=== PATIENT | male | born 1960 | race Caucasian/White ===

== ENCOUNTER 2025-04-19 13:26 | Outpatient (CLI) | payer BC ==
--- NOTE | 2025-04-19 14:40 | RADIOLOGY REPORT ---
EXAM: CT CT LOWER EXTREMITY HISTORY: OSTEOARTHRITIS, RIGHT KNEE, PAIN- TRUMATCH PROTOCOL COMPARISON: None TECHNIQUE: Noncontrast axial CT images of the right knee were performed. Sagittal and coronal reformatted images were obtained. Limited axial imaging of the right hip and ankle were also performed. This CT exam was performed using one or more of the following dose reduction techniques: Automated exposure control, adjustment of the mA and/or kv according to patient size, or the use of iterative reconstruction techniques. Radiation Dose Information: CTDI volume is 8.32 mGy. Dose-length product is 290.02 mGy*cm FINDINGS: No acute fracture is identified about right knee. There are tricompartmental marginal osteophytes. There is moderate joint space narrowing of the medial compartment. There is mild joint space narrowing of the patellofemoral compartment. There is a small quadriceps tendon insertion enthesophyte on the superior pole of the patella. There is a moderate to large joint effusion. There is mild osteoarthritis of the right hip. Accessory navicular bone and Achilles insertion enthesophyte are incidentally noted. IMPRESSION: 1. No acute fracture of the right knee. 2. Tricompartmental degenerative changes of the right knee, greatest in the medial compartment. 3. Moderate to large right knee effusion.
== END 2025-04-19 23:59 | disposition home or self-care (01) ==
LOC: RAD 13:26
PROVIDERS: ATTEND Orthopaedic Surgery
DX: M17.11 Unilateral primary osteoarthritis, right knee (principal); M25.461 Effusion, right knee
CPT/HCPCS: 73700

== ENCOUNTER 2025-05-11 07:06 | Inpatient (IN) | payer BC ==
--- NOTE | 2025-05-04 14:08 | ELECTROCARDIOGRAPH REPORT ---
[facility] Test Date: 2025-05-04 Test Time: 14:05:43 Pat Name: DIANNE JUSTIN Department: [facility]-PRE-OP Patient ID: [facility]-[id number] Room: Gender: M Purchasing/Receiving: : 1960 Requested By: ADAMA HERNANDEZ Order Number: [id number] Reading MD: Dr. CELINE Benjamin Measurements Intervals [place] Rate: 66 P: 46 NJ: 155 QRS: 83 QRSD: 103 T: -47 QT: 399 QTc: 418 Interpretive Statements Sinus rhythm Consider left atrial enlargement Borderline right axis deviation Abnormal T, consider ischemia, inferior leads Electronically Signed On 05-04-2025 17:07:[address] CELINE Benjamin Please click the below link to view image of tracing.
[2025-05-04 14:20] LABS: MEAN PLATELET VOLUME 7.6 FL (7.4-10.4); PRE OP HEMATOCRIT 44.0 % (42.0-52.0); PRE OP HEMOGLOBIN 15.0 g/dL (14.0-17.9); PRE OP PLATELET COUNT 172 X10'3 (140-440); PRE OP WHITE BLOOD COUNT 5.8 10'3 (4.8-10.8); RED CELL DISTRIBUTION WIDTH 13.9 % (11.5-14.5)
[2025-05-04 14:36] LABS: CREATININE 1.06 MG/DL (0.60-1.10); PRE OP ALT 33 U/L (30-65); PRE OP ANION GAP 7 (8-16); PRE OP AST 23 U/L (10-37); PRE OP BILIRUB, TOTAL 0.4 MG/DL (0.0-1.0); PRE OP GLUCOSE 98 MG/DL (70-104); PRE OP POTASSIUM 4.1 MMOL/L (3.4-5.1); PRE OP SODIUM 141 MMOL/L (135-145); TOTAL CARBON DIOXIDE 28.2 MMOL/L (24-32); eGFR 71 ML/MIN
[~2025-05-11] VITALS: Ht 180.3 cm; Wt 115.6 kg
[2025-05-11] VITALS (18 sets, daily range): BP systolic 113–150; BP diastolic 78–98; PULSE 63–88; RESP 11–19; TEMP 96.9–98.6; O2SAT 87–100
[2025-05-11] MEDS: tranexamic acid 1gm/0.7% sal. 100 ML IV ONE (05:30)
[2025-05-11] MEDS: ceFAZolin 2gm/dext,iso 50mL 50 ML IV ONE (05:30)
[~2025-05-11 07:06] MED LIST: ROSU20TA98 PO; vancomycin 1,000mg inj ONE
[2025-05-11] MEDS ORDERED: vancomycin 1,000mg inj ONE (07:12)
[2025-05-11] MEDS ORDERED: BUPIVAcaine 2.5mg/ml inj 50ml vial (contains preservative) ONE (07:17)
[2025-05-11] MEDS: ringers solution, lacted 1,000 ML IV SCH ×2 (08:50→15:17)
[2025-05-11] MEDS: VANCOMYCIN/H2O 1.5g/300mL PB 300 ML IV ONE (08:51)
[2025-05-11] MEDS ORDERED: MIDAZolam 1 MG/ML 5ML VIAL ONE ×2 (10:59→11:29)
[2025-05-11] MEDS ORDERED: fentaNYL/PF 50MCG/1 ML 2ML syringe ONE (10:59)
[2025-05-11] MEDS ORDERED: propofol inj 20 ML IV ONE ×2 (11:15→13:38)
[2025-05-11] MEDS ORDERED: fentaNYL/PF 50MCG/1 ML 2ML syringe IV PRN ×2 (12:30)
[2025-05-11] MEDS ORDERED: morphine 4 MG/ML inj SYRINge IV PRN (12:30)
[2025-05-11] MEDS ORDERED: enalaprilat 1.25mg/ml 2ml vial IV PRN (12:30)
[2025-05-11] MEDS ORDERED: ondansetron/PF 4mg/2ml inj IV PRN ×2 (12:30→14:50)
[2025-05-11] MEDS ORDERED: HYDROmorphone/PF 0.2 MG/ML SYRINGE IV PRN ×2 (12:30)
[2025-05-11] MEDS ORDERED: labetalol 20mg/4ml (5mg/ml) syringe IV PRN (12:30)
--- NOTE | 2025-05-11 12:30 | ANESTHESIA RECORDS ---
Nerve Block Providers to CC ~ Diagnosis: Nerve Block requested by: ADAMA HERNANDEZ MD Neuraxial/Peripheral Nerve Block requested for Post-operative analgesia by Physician above DIAGNOSIS: Post-operative pain. (Body Area) Shoulder: [ ] Arm: [ ] Hand: [ ] Hip: [ ] Knee: [ Right ] Ankle: [ ] Foot: [ ] Leg: [ ] Abdomen: [ ] Other: [ ] Post-operative pain expected to be/is inadequately managed by oral or IV medicines. Regional anesthetic expected to facilitate rehabilitation and/or discharge from facility. Other:[ ] Procedure Performed: Femoral / Saphenous: Right Time out Done?: Yes Time of Time out: 13:58 Procedure Details: PROCEDURE DETAILS: Risks, benefits and alternatives explained Informed consent obtained, and patient wishes to proceed Conscious sedation with indicated monitors Patient positioned, pertinent anatomy defined, sterile technique used Needle used: [ ] 3 1/8 inch Stimuplex Ultra 22ga [x ] 4 inch Stimuplex Ultra 20ga [ ] 6 inch Stimuplex Ultra 20ga [ ] 6 inch, Quikbloc over the needle catheter set 20ga [ ] 4 inch Quikbloc over the needle catheter set 20ga [ ]Other: [ ] Loss of twitch @ [ N/A ]mA [ x] Single Injection [ ] Catheter Ultrasound Guidance Used: [x ] Yes [ ] No Attempts:[ once ] Medicines injected: [x ]Clonidine Amt:[ 1oo mcgs ] [x ]Dexamethasone Amt:[ 4 mgs ] [x ]Ropivacaine Amt:[____0.5 % 25 cc ] [ ]Bupivacaine Amt:[___0.375% 20 cc ] [ ]Lidocaine Amt:[ ] [ ]Exparel 1.33%:[ ] [ ]Epinephrine Amt[ ] [ ]Other: [ ] Intermittent aspiration during local anesthetic administration No symptoms of intraneural or intravenous injection Patient tolerated procedure well Comments Rt Adductor Canal blk Procedure done after surgery under Spinal anesthesia. Pt supine with Rt leg rotated to Rt slightly. Easy visualization of Adductor Canal with ultra sound anterolateral to Femoral artery at the junction of upper and middle third of thigh. Able to see the tip of the needle and injected local anesthetic with the ultrasound. 5 cc of local anesthetic is injected into nerve to Vastus medialis and few cc is injected into ant femoral cutaneous nerves. No Pain or discomfort during injection. Rt IPACK Block: (Infiltration Between Popliteal Artery and Capsule of the Knee). Knee is flexed with the patient in supine position. Using a curvilinear probe placed under the knee, Popliteal vessels are identified. Block needle is inserted from Medial part of the knee about the Patellar level in between popliteal vessels and femoral condyles (capsule of knee) and 20 ml of local anes thetic solution is infiltrated in the space. STACIE AL MD May 11, 2025 12:30
[2025-05-11] MEDS ORDERED: ROPIVAcaine 0.5% (5mg/ml) 30ml vial ONE (13:38)
[2025-05-11] MEDS ORDERED: BUPIVAcaine/PF 7.5mg/ml (0.75%) 10ml vial ONE (13:39)
[2025-05-11] MEDS ORDERED: LIDOcaine 1%/PF 5ML 10 MG/ML VIAL ONE (13:40)
[2025-05-11] MEDS ORDERED: bisacodyl 10mg suppository rectal RC PRN (14:50)
[2025-05-11] MEDS ORDERED: PCA WASTE DOCUMENTATION 1 MG ML MC SCH (14:50)
[2025-05-11] MEDS ORDERED: oxyCODONE IR 5mg (immed. release) tablet PO PRN (14:50)
[2025-05-11] MEDS ORDERED: tranexamic acid inj. 1,150 MG in normal saline 100ml IV soln 100 ML IV ONE (14:50)
[2025-05-11] MEDS ORDERED: magnesium hydroxide 30ml (MOM) UD suspension PO PRN (14:50)
[2025-05-11] MEDS ORDERED: HYDROmorphone inj. 0.5 MG/0.5 ML DISP.SYRIN IV PRN (14:50)
--- NOTE | 2025-05-11 15:03 | OPERATIVE REPORT ---
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 Femoral component size right nine. Patellar component 41 mm. Tibial component size 10. 6 mm medial stabilized right polyethylene liner. Of the Estimated Blood Loss: 150 mL Specimen Removed: Degenerative bone bone meniscal and cruciate tissue Description of Procedure: Patient was taken to the operating room after I had obtained informed consent and signed his right knee he is given prophylactic intravenous antibiotics per protocol. Once in the operating room he was placed in a supine position after getting a spinal anesthetic by anesthesiologist. Once in the supine position his left leg was placed in an SCD devices right leg was placed in a well-padded upper thigh tourniquet and prepped and draped in usual sterile orthopaedic fashion. A surgical time-out was taken per protocol and the case was begun. Esmarch was used for exsanguination tourniquet was insufflated to 275 mm of mercury. Ioban skin dressing was used to protect the entirety of the knee. IMP leg deluna was used. An anterior incision was made measuring approximately 10 in and a medial parapatellar approach was accomplished using Saf dissection without difficulty hemostasis was achieved during the approach minimizing blood loss. Patella was evaluated and found to have extensive degenerative changes the surrounding osteophytes and marked synovitis. Osteotomy of the patella was accomplished with a freehand technique removing minimal amount of tissue equal to the size of the replacement prosthetic implant. The cut surfaces was drilled per protocol and placed in a protective patellar skin plate subluxed laterally while the knee was flexed to expose the distal femur. Meticulous care was used to make sure that we had excellent exposure in the distal femoral cutting block fit perfectly was pinned into place in the distal femoral cut was made without difficulty. Proximal tibial osteotomy was accomplished after releasing the cruciate ligaments and resected in the meniscal tissue. Patient had cutting block fit perfectly Na osteotomy of the proximal tibia was accomplished without difficulty and removed on block. Making sure that all meniscal tissue and cruciate tissue was excised of the posterior aspect of the tibia the extension gap was measured to be 6 mm placed in the knee at 90 of flexion of the tension diameter and flexion with 6 mm using the tension diameter to establish external rotation the femoral four in one cutting block was applied anterior and posterior chamfer cuts were made without difficulty the 3rd chamfer cut was made with a separate cutting alignment through and the trial of the femur and tibia fit nicely size 9th of the femur size 10 with the tibia achieving full range of motion and stable with a 6 mm polyethylene liner. Copious antibiotic antiseptic irrigation was used prior to placement of the implants. Tibial implant was impacted into place with excellent bone quality femoral component was impacted finally and then a definitive 6 mm liner was placed after trialing five in the six to mixture of the six was stable. With the [address] full extension and full flexion throughout a range of motion with a central fat and patella trial in place was appreciated. Definitive polyethylene liner was placed in the knee without difficulty of the patella was component was Press-Fit into place with a patellar clamp and the knee was again found tract normally throughout a full range of motion. Tourniquet had been released prior to the implantation hemostasis was achieved with electrocautery there were no significant arterial bleeders closure of the medial parapatellar approach was accomplished with interrupted suture of 1. Ethibond using simple and [id number] sutures the subcuticular closure was accomplished with 2-0 Vicryl and the skin was closed with skin miryam using silk dressing wound dressing and island dressing in the anterior aspect of the knee. There has good distal pulses and capillary refill to the foot after the tourniquet had been released and at the completion of the surgery. Patient was handed over to the anesthesiologist for application and placement of a adductor canal block using the on Q pump. Patient was now transferred to recovery room in stable condition without any perioperative complications Counts repoted as correct: Yes NGHIA HERNANDEZ MD May 11, 2025 15:02
[2025-05-11] MEDS: acetaminophen 1,000mg/100ml IV 100 ML IV ONE (15:41)
--- NOTE | 2025-05-11 17:46 | CARDIOLOGY REPORT ---
APPROVED REPORT EXAM: Comprehensive 2D, Doppler, and color-flow Echocardiogram. 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 156.2 cm/s AoV VTI 28.9 cm AO Peak GR. 9.8 mmHg AO Mean GR. 5 mmHg LVOT VTI 22.42 cm LVOT Peak Jesus. 106.4 cm/s JONES (VMAX) 2.88 cm2 JONES (VTI) 3.27 cm2 AV DI 0.77 % Mitral Valve MV E Velocity 83.0 cm/s MV DECEL TIME 209 ms MV A Velocity 64.2 cm/s E/A Ratio 1.3 TDI E/Medial E' 12.7 Tricuspid Valve TR P. Velocity 226 cm/s RAP ESTIMATE 10 mmHg TR Peak Gr. 21 mmHg RVSP 31 mmHg Pulmonary Vein S2 Velocity 50.04 cm/s PVa Duration 74 msec LEFT VENTRICLE Normal LV size and wall thickness. Overall systolic function is normal. LVEF is 60%. RIGHT VENTRICLE RV appears mildly dilated with normal contractility. RVSP is estimated at 31 mmHG. ATRIA Left atrium is moderately dilated. AORTIC VALVE Trileaflet AV appears sclerotic without stenosis. No insufficiency by color and spectral flow Doppler. MITRAL VALVE MV is thickened with mild annular thickening and no stenosis. Trace mitral regurgitation by color and spectral flow Doppler. TRICUSPID VALVE The tricuspid valve is normal in structure. Trace tricuspid regurgitation by color and spectral flow Doppler. PULMONIC VALVE The pulmonary valve is normal in structure. Mild pulmonic insufficiency by color and spectral flow Doppler. GREAT VESSELS The aortic root is normal in size. The IVC is normal in size and collapses >50% with inspiration. PERICARDIUM There is no pericardial effusion. Other Information Study Quality: Adequate Conclusion Normal LV size and wall thickness. Overall systolic function is normal. LVEF is 60%. RV appears mildly dilated with normal contractility. RVSP is estimated at 31 mmHG. Left atrium is moderately dilated. Trileaflet AV appears sclerotic without stenosis. No insufficiency by color and spectral flow Doppler. MV is thickened with mild annular thickening and no stenosis. Trace mitral regurgitation by color and spectral flow Doppler. The tricuspid valve is normal in structure. Trace tricuspid regurgitation by color and spectral flow Doppler. The pulmonary valve is normal in structure. Mild pulmonic insufficiency by color and spectral flow Doppler. There is no pericardial effusion.
--- NOTE | 2025-05-11 18:03 | RADIOLOGY REPORT ---
CLINICAL INDICATION: Postop right knee TECHNIQUE: 2 radiographic views of the right knee were obtained. COMPARISON: CT lower extremity 04/19/2025 FINDINGS/IMPRESSION: Postsurgical changes of right total knee replacement with intact hardware. No evidence of acute traumatic fractures or dislocations. There is soft tissue edema anterior to the knee and distal thigh with overlying skin miryam consistent with recent surgery.
[2025-05-11] MEDS: tranexamic acid inj. 1,150 MG in normal saline 100ml IV soln 88.5 ML IV ONE (18:52)
[2025-05-11] MEDS: vancomycin/NS 1 GM ADD-VANTAGE 250 ML IV SCH (20:55)
[2025-05-11] MEDS: oxyCODONE IR 5mg (immed. release) tablet PO PRN (20:57)
[2025-05-12 02:00] VITALS: BP 138/84; PULSE 87; RESP 16; TEMP 97.9; O2SAT 97
[2025-05-12 06:00] VITALS: BP 127/88; PULSE 72; RESP 16; TEMP 97.5; O2SAT 97
[2025-05-12] MEDS: enoxaparin 40mg/0.4ml syringe SQ SCH (07:59)
[2025-05-12 08:00] VITALS: RESP 16; O2SAT 97
[2025-05-12 14:37] VITALS: RESP 14
== END 2025-05-12 15:05 | disposition home health service (06) | DRG 470 ==
LOC: PAS 07:06 → EDUNIT# 08:30 → PAS IN 14:52 → ORTHO 4S 15:59
PROVIDERS: ADMIT Orthopaedic Surgery; ATTEND Orthopaedic Surgery
PROC: 3E0T3BZ Introduction of Anesthetic Agent into Peripheral Nerves and Plexi, Percutaneous Approach (ICD-10-PCS; 2025-05-11)
PROC: 3E0T33Z Introduction of Anti-inflammatory into Peripheral Nerves and Plexi, Percutaneous Approach (ICD-10-PCS; 2025-05-11)
PROC: 0SRC0JA Replacement of Right Knee Joint with Synthetic Substitute, Uncemented, Open Approach (ICD-10-PCS; principal; 2025-05-11 10:50)
DX: M17.11 Unilateral primary osteoarthritis, right knee (principal); E78.5 Hyperlipidemia, unspecified; M65.88 Other synovitis and tenosynovitis, other site
CPT/HCPCS: 93306; Z7506; Z7508; 36415; 73560; 80053; 82948; 85025; 87081; 93005; 97110; 97116; 97161; 97530; A4215; A6253; A6258; A6446; A6449; A6454; A7000; C1776; C9250; G0378; J0131; J0690; J1171; J1650; J2250; J2270; J2704; J2795; J3010; J3373; J3375; J3490; J7120